=== PATIENT | male | born 1970 | race Caucasian/White ===

== ENCOUNTER 2021-01-15 16:15 | Emergency (ER) | payer MEDICAID, OTHER ==
[~2021-01-15] VITALS: Ht 167.6 cm; Wt 75.0 kg
[~2021-01-15 16:15] MED LIST: BENZ2AMP4 IJ; CA C1TAB36 PO; CARB200T PO; LAMO150T3 PO; MEDR5TAB PO; RISP3TAB23 PO; SIMV20TA18 PO
--- NOTE | 2021-01-15 16:31 | ED.ADGEN ---
Past Medical History Past Medical History: Seizure, Other Additional Past Medical Histor: Mental retardation, petit-mal seizures Past Surgical History: No Surgical History Smoking Status: Never Smoker Alcohol Use: None Drug Use: None General Adult EDM: Chief Complaint: WEAKNESS/GENERALIZED HPI: HPI: Patient is a 50 year old male brought in by EMS for altered mental status. Patient is a history of mental disabilities and history is provided by EMS and caregiver. Per EMS report patient was last seen normal and eating dinner about 24 hours ago, his caregiver noticed at 1900 that he was lethargic and not talking. Caregiver at that time assumed that he had had a seizure since he has a history of epilepsy. Has not come around to come back to normal today. No seizure activity noted. Patient had been incontinent of urine now. EMS noted some facial asymmetry on exam. Patient answers occasional questions and states he "feels fine" and follows commands intermittently.. Caregiver also notes that patient is normally very high functioning and is able to dress himself and talkative. He said that around 7 patient stated he was tired and wanted to go to bed. He did not think that was out of the ordinary if the patient had had a seizure he usually is tired and wants to go to bed early. Today and the caregiver went to get him up for breakfast patient was saying he was tired and want to stay in bed. He was given his medications and a few bites of cereal. Has not gotten out of bed or ambulate today. Caregiver checked his temperature which was 100 but slowly trended down without any antipyretics. Caregiver states that patient was covered and a heavy blanket at the initial temperature. He is normally continent of urine, but occasionally has incontinence when he is having a seizure. Patient never went to penitentiary has been vaccinated against COVID-19 Review of Systems: Review of Systems: All other systems within normal limits except for as noted in the HPI Current Medications: Current Medications Medications (Trade) Dose Ordered Sig/Sunita Start Time Stop Time Status Last Admin Dose Admin Cefoxitin Sodium (Mefoxin) 1 gm 1X ONCE 01/15/21 18:00 01/15/21 18:01 DC Info (CONTRAST GIVEN -- Rx MONITORING) 1 each PRN DAILY PRN 01/15/21 18:00 01/17/21 17:59 Iohexol (Omnipaque 300 Mg/ml) 75 ml 1X ONCE 01/15/21 17:45 01/15/21 17:49 DC Allergies: Allergies: Allergies Coded Allergies Type Severity Reaction Last Updated Verified No Known Drug Allergies 11/20/13 No Physical Exam: PE: Constitutional: Well developed, well nourished, no acute distress, non-toxic appearance. [] HENT: Normocephalic, atraumatic, bilateral external ears normal, nose normal. [] Eyes: PERRLA, conjunctiva normal, no discharge. [] Neck: No rigidity, supple, no stridor. [] Cardiovascular: Regular rate and rhythm, brisk cap refill [] Lungs & Thorax: Non labored symmetric respirations, no tachypnea or respiratory distress [] Abdomen: Soft, nondistended. Skin: Warm, dry, no erythema, no rash. [] Back: Unremarkable, nondistended, no guarding to palpation, large right-sided inguinal hernia into right testicle Extremities: No deformities, range of motion grossly intact, no lower extremity edema [] Neurologic: Alert, oriented x1, intermittently following commands, left side of mouth drooping.] Psychologic: Unable to assess] Current Patient Data: Labs: Laboratory Tests Test 01/15/21 17:13 White Blood Count 32.7 x10^3/uL (4.0-11.0) H Red Blood Count 3.81 x10^6/uL (4.30-5.70) L Hemoglobin 12.2 g/dL (13.0-17.5) L Hematocrit 35.8 % (39.0-53.0) L Mean Corpuscular Volume 94 fL (79-100) Mean Corpuscular Hemoglobin 32 pg (25-35) Mean Corpuscular Hemoglobin Concent 34 g/dL (31-37) Red Cell Distribution Width 13.5 % (11.5-14.5) Platelet Count 215 x10^3/uL (140-400) Neutrophils (%) (Auto) 91 % (31-73) H Lymphocytes (%) (Auto) 2 % (24-48) L Monocytes (%) (Auto) 7 % (0-9) Eosinophils (%) (Auto) 0 % (0-3) Basophils (%) (Auto) 0 % (0-3) Neutrophils # (Auto) 29.8 x10^3/uL (1.8-7.7) H Lymphocytes # (Auto) 0.6 x10^3/uL (1.0-4.8) L Monocytes # (Auto) 2.3 x10^3/uL (0.0-1.1) H Eosinophils # (Auto) 0.0 x10^3/uL (0.0-0.7) Basophils # (Auto) 0.1 x10^3/uL (0.0-0.2) Segmented Neutrophils % 82 % (35-66) H Band Neutrophils % 10 % (0-9) H Lymphocytes % 1 % (24-48) L Monocytes % 7 % (0-10) Platelet Estimate Adequate (ADEQUATE) Sodium Level 139 mmol/L (136-145) Potassium Level 4.3 mmol/L (3.5-5.1) Chloride Level 101 mmol/L (98-107) Carbon Dioxide Level 30 mmol/L (21-32) Anion Gap 8 (6-14) Blood Urea Nitrogen 17 mg/dL (8-26) Creatinine 0.7 mg/dL (0.7-1.3) Estimated GFR (Cockcroft-Gault) 118.9 BUN/Creatinine Ratio 24 (6-20) H Glucose Level 145 mg/dL (70-99) H Lactic Acid Level 1.2 mmol/L (0.4-2.0) Calcium Level 8.6 mg/dL (8.5-10.1) Phosphorus Level 2.8 mg/dL (2.6-4.7) Magnesium Level 2.0 mg/dL (1.8-2.4) Total Bilirubin 0.5 mg/dL (0.2-1.0) Aspartate Amino Transferase (AST) 33 U/L (15-37) Alanine Aminotransferase (ALT) 41 U/L (16-63) Alkaline Phosphatase 105 U/L (46-116) Creatine Kinase 34 U/L (39-308) L Myoglobin 30 ng/mL (16-96) Troponin I Quantitative < 0.017 ng/mL (0.000-0.055) WP-Gpx-U-Type Natriuretic Peptide 1434 pg/mL (0-124) H Total Protein 6.5 g/dL (6.4-8.2) Albumin 3.5 g/dL (3.4-5.0) Albumin/Globulin Ratio 1.2 (1.0-1.7) Laboratory Tests 01/15/21 17:13 Laboratory Tests 01/15/21 17:13 Vital Signs: Vital Signs Date Time Temp Pulse Resp B/P (MAP) Pulse Ox O2 Delivery O2 Flow Rate FiO2 01/15/21 16:18 98.3 71 16 128/60 (82) 98 Room Air 98.3 EKG: EKG: Sinus rhythm, heart rate 60 bpm, normal axis, no ST elevation or depression [] Heart Score: C/O Chest Pain: No HEART Score for Chest Pain: HEART Score for Chest Pain Response (Comments) Value History Slighlty/Non-Suspicious 0 ECG Normal 0 Age >45 - < 65 1 Risk Factors No Risk Factors 0 Troponin < Normal Limit 0 Total 1 Risk Factors: Risk Factors: DM, Current or recent (<one month) smoker, HTN, HLP, family history of CAD, obesity. Risk Scores: Score 0 - 3: 2.5% MACE over next 6 weeks - Discharge Home Score 4 - 6: 20.3% MACE over next 6 weeks - Admit for Clinical Observation Score 7 - 10: 72.7% MACE over next 6 weeks - Early Invasive Strategies Radiology/Procedures: Radiology/Procedures: [facility] [address] [place] [address] IMAGING REPORT Signed PATIENT: TEE VAUGHAN ACCOUNT: [id number] : 1970 LOCATION: ER AGE: 50 SEX: M EXAM STATUS: PRE ER ORD. PHYSICIAN: ARACELIS VELASQUEZ MD REASON: ams, left face droop PROCEDURE: CT HEAD WO CONTRAST CT HEAD/BRAIN WO History: Reason: ams, left face droop / Spl. Instructions: / History: Comparison: None. Technique: Noncontrast CT imaging was performed of the head. Exposure: One or more of the following individualized dose reduction techniques were utilized for this examination: 1. Automated exposure control 2. Adjustment of the mA and/or kV according to patient size 3. Use of iterative reconstruction technique. Findings: No intracranial hemorrhage. No mass effect. No hydrocephalus. Extra-axial spaces are unremarkable. Imaged orbits are unremarkable. Imaged paranasal sinuses and mastoid air cells are clear. No acute calvarial fracture. Impression: 1. No acute intracranial abnormality. Electronically signed by: Leonel Swanson DO (01/15/2021 5:12 PM) [facility] DICTATED and SIGNED BY: LEONEL SWANSON DO DATE: 01/15/21 [id number] [][facility] [address] [place] [address] IMAGING REPORT Signed PATIENT: TEE VAUGHAN ACCOUNT: [id number] : 1970 LOCATION: ER AGE: 50 SEX: M EXAM STATUS: PRE ER ORD. PHYSICIAN: ARACELIS VELASQUEZ MD REASON: ams PROCEDURE: CHEST AP ONLY XR CHEST 1V History: Reason: ams / Spl. Instructions: / History: Comparison: None. Findings: Mild interstitial thickening with ill-defined mid and bibasilar opacities. No pleural effusion. No pneumothorax. Normal heart size. Chronic ununited left distal clavicular fracture. Impression: 1. Mild interstitial thickening with ill-defined opacities, may represent pulmonary edema or infection. Electronically signed by: Leonel Swanson DO (01/15/2021 5:08 PM) [facility] DICTATED and SIGNED BY: LEONEL SWANSON DO DATE: 01/15/[id number] 0 Course & Med Decision Making: Course & Med Decision Making Pertinent Labs and Imaging studies reviewed. (See chart for details) Transitioned at shift change, pending CT a of the head and neck and CT of the abdomen to evaluate for inguinal mass. [] Dragon Disclaimer: Dragon Disclaimer: This electronic medical record was generated, in whole or in part, using a voice recognition dictation system. Departure Departure Referrals: JUAN VELASQUEZ MD (PCP) ARACELIS VELASQUEZ MD Jan 15, 2021 16:31
--- NOTE | 2021-01-15 17:06 | EKG ---
[facility] [address] [place] [address] Test Date: 2021-01-15 Test Time: 16:46:00 Pat Name: TEE VAUGHAN Department: Room: Gender: Staff Consultant: : 1970 Requested By: ARACELIS VELASQUEZ Order Number: [id number] Reading MD: Measurements Intervals [place] Rate: 69 P: 26 DE: 174 QRS: 49 QRSD: 96 T: 68 QT: 422 QTc: 454 Interpretive Statements SINUS RHYTHM NORMAL ECG RI6.02 No previous ECG available for comparison
--- NOTE | 2021-01-15 17:10 | RAD ---
XR CHEST 1V History: Reason: ams / Spl. Instructions: / History: Comparison: None. Findings: Mild interstitial thickening with ill-defined mid and bibasilar opacities. No pleural effusion. No pn eumothorax. Normal heart size. Chronic ununited left distal clavicular fracture. Impression: 1. Mild interstitial thickening with ill-defined opacities, may represent pulmonary edema or infecti on. Electronically signed by: Leonel Swanson DO (01/15/2021 5:08 PM) [facility]
--- NOTE | 2021-01-15 17:14 | RAD ---
CT HEAD/BRAIN WO History: Reason: ams, left face droop / Spl. Instructions: / History: Comparison: None. Technique: Noncontrast CT imaging was performed of the head. Exposure: One or more of the following individualized dose reduction techniques were utilized for thi s examination: 1. Automated exposure control 2. Adjustment of the mA and/or kV according to patient size 3. Use of iterative reconstruction technique. Findings: No intracranial hemorrhage. No mass effect. No hydrocephalus. Extra-axial spaces are unremarkable. Imaged orbits are unremarkable. Imaged paranasal sinuses and mastoid air cells are clear. No acute ca lvarial fracture. Impression: 1. No acute intracranial abnormality. Electronically signed by: Leonel Swanson DO (01/15/2021 5:12 PM) [facility]
[2021-01-15 17:24] LABS: BASO # 0.1 x10^3/uL (0.0-0.2); BASO % 0 % (0-3); EOS % 0 % (0-3); HEMATOCRIT 35.8 % (39.0-53.0); HEMOGLOBIN 12.2 g/dL (13.0-17.5); LYMPH # 0.6 x10^3/uL (1.0-4.8); LYMPH % 2 % (24-48); MEAN CORPUSCULAR HEMOGLOBIN 32 pg (25-35); MEAN CORPUSCULAR HGB CONC 34 g/dL (31-37); MEAN CORPUSCULAR VOLUME 94 fL (79-100); MONO # 2.3 x10^3/uL (0.0-1.1); MONO % 7 % (0-9); NEUT # 29.8 x10^3/uL (1.8-7.7); NEUT % 91 % (31-73); PLATELET COUNT 215 x10^3/uL (140-400); RED BLOOD COUNT 3.81 x10^6/uL (4.30-5.70); RED CELL DISTRIBUTION WIDTH 13.5 % (11.5-14.5); WHITE BLOOD COUNT 32.7 x10^3/uL (4.0-11.0)
[2021-01-15 17:35] LABS: CALCIUM 8.6 mg/dL (8.5-10.1); CREATININE 0.7 mg/dL (0.7-1.3); GFR 118.9; POTASSIUM 4.3 mmol/L (3.5-5.1)
[2021-01-15 17:39] LABS: % BANDS 10 % (0-9); % LYMPHS 1 % (24-48); % MONOS 7 % (0-10); % SEGS 82 % (35-66); PLT ESTIMATE ADEQUATE (ADEQUATE)
[2021-01-15] MEDS ORDERED: IOHEXOL 300 MG/ML 100ML VIAL. IV ONE (17:45)
[2021-01-15 17:50] LABS: ALBUMIN 3.5 g/dL (3.4-5.0); ALBUMIN/GLOBULIN RATIO 1.2 (1.0-1.7); PHOSPHORUS 2.8 mg/dL (2.6-4.7); TOTAL BILIRUBIN 0.5 mg/dL (0.2-1.0); TOTAL PROTEIN 6.5 g/dL (6.4-8.2)
[2021-01-15] MEDS ORDERED: CONTRAST GIVEN. MC PRN (18:00)
[2021-01-15] MEDS ORDERED: cefOXitin SODIUM IV Push 1 GM VIAL. IVP ONE (18:00)
--- NOTE | 2021-01-15 18:14 | PDOC2 ---
NEUROLOGY CONSULT Date of Service DOS: DATE: 01/15/21 TIME: 17:56 Reason for Consult Reason for Consult: Possible stroke Referring Physician Referring Physician: Hospitalist Source Source: Caregiver (VANITA Lieberman), Chart review, Patient History of Present Illness History of Present Illness The patient is a 50-year-old right-handed male last known normal last night. 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 Today he was found to be weak, not moving, decreased level of consciousness. At baseline, he eats and dresses for himself. I reviewed his [facility] chart with permission from his power of instrument lens generator. He last saw Dr. Kay, epilepsy specialist at the [facility], in July. Patient is on carbamazepine and lamotrigine. He has a seizure history at least once daily of complex partial seizures unchanged from baseline. He has seizures since childhood. He had an EEG in 05/05/2008 showing left occipital epileptic discharge and bilateral hemispheric dysfunction. He has chronic intellectual disability and as stated, lives in a chcf. There is no history of stroke or head injury. Past Medical History Cardiovascular: HTN, Hyperlipidemia CENTRAL NERVOUS SYSTEM: Seizure (Epilepsy), Other (Intellectual disability) Endocrine: Osteoporosis Past Surgical History Past Surgical History: No pertinent history Family History Family History: No pertinent hx (Unknown) Social History Social History Single, disabled, lives in a chcf, no alcohol, tobacco, street drug Current Medications Current Medications Current Medications Iohexol (Omnipaque 300 Mg/ml) 75 ml 1X ONCE IV ; Start 01/15/21 at 17:45; Stop 01/15/21 at 17:49; Status DC Info (CONTRAST GIVEN -- Rx MONITORING) 1 each PRN DAILY PRN MC SEE COMMENTS; Start 01/15/21 at 18:00; Stop 01/17/21 at 17:59 Cefoxitin Sodium (Mefoxin) 1 gm 1X IVP ; Start 01/15/21 at 18:00; Status UNV Active Scripts Active Reported Calcium + Vit D & K Chew Tab (Ca Carbonate/Vitamin D3/Vit K) 1 Each Tab.chew 1 Each PO DAILY08 Risperdal (Risperidone) 3 Mg Tablet 3 Mg PO HS Tegretol (Carbamazepine) 200 Mg Tablet 200 Mg PO BID Cogentin (Benztropine Mesylate) 2 Mg/2 Ml Ampul 1 Mg IJ BID Lamictal (Lamotrigine) 150 Mg Tablet 150 Mg PO BID Simvastatin 20 Mg Tablet 20 Mg PO DAILY Provera (Medroxyprogesterone Acetate) 5 Mg Tablet 5 Mg PO DAILY From [facility] chart: benztropine (COGENTIN) 1 mg tablet, Take 1 mg by mouth twice daily., Disp: , Rfl: carBAMazepine XR (TEGRETOL XR) 100 mg tablet, TAKE 1 TABLET BY MOUTH EVERY MORNING AND TAKE 2 TABLETS (200MG) EVERY EVENING (EQ TEGRETOL) *TOTAL DOSE 500MG/AM AND 600MG/PM* FOR SEIZURES, Disp: 93 tablet, Rfl: 6 carBAMazepine XR (TEGRETOL XR) 400 mg tablet, TAKE 1 TABLET BY MOUTH TWICE A DAY FOR SEIZURES (EQ TEGRETOL), Disp: 62 tablet, Rfl: 6 lamoTRIgine (LAMICTAL) 150 mg tablet, TAKE 2 TABLETS (=300MG) BY MOUTH TWICE A DAY FOR SEIZURES (EQ: LAMICTAL), Disp: 124 tablet, Rfl: 3 medroxyprogesterone (PROVERA) 5 mg tablet, Take 5 mg by mouth daily., Disp: , Rfl: risperiDONE (RISPERDAL) 3 mg tablet, Take 3 mg by mouth at bedtime daily., Disp: , Rfl: simvastatin (ZOCOR) 20 mg tablet, Take 20 mg by mouth at bedtime daily., Disp: , Rfl: Allergies Allergies: Coded Allergies: No Known Drug Allergies (Unverified , 11/20/13) ROS Review of System Negative for fever, chills, weight loss, shortness of breath, chest pain, indigestion, hematochezia, melena, and dysuria. Full 14-point review of systems is negative. Physical Exam Physical Examination General: Well-developed, well-nourished white male in no acute distress HEENT: Normocephalic andatraumatic. Temporal arteriespulsatile and nontender. Neck: Supple without bruit, no meningismus Musculoskeletal: Stability:see neurologic. Gait exam:see neurologic. Tone:see neurologic.Strength:see neurologic. Neurological: Mental Status:Alert, can tell me his name, does not know date or location, intermittently follows simple commands. Cranial Nerves:Pupils equal and reactive to light, extraocular movements areintact, visual negrete are full to confrontation. Facial sensation is normal. There is a left central facial weakness. Vestibulo-ocular reflex is intact. Palate elevates and tongue protrudes in midline. All other cranial related problems are negative except as mentioned before.Reflexes:2+ and symmetric with extensor plantar response on the left, flexor on the right. Motor:4/5, weaker on the left. Coordination and gait:not cooperative. Mild coarse tremor of the right arm. Sensory:Not cooperative, does respond to pinprick in all 4 extremities. Vitals VITALS Vital Signs Date Time Temp Pulse Resp B/P (MAP) Pulse Ox O2 Delivery O2 Flow Rate FiO2 01/15/21 16:18 98.3 71 16 128/60 (82) 98 Room Air 98.3 Labs Labs Laboratory Tests Test 01/15/21 17:13 White Blood Count 32.7 x10^3/uL (4.0-11.0) Red Blood Count 3.81 x10^6/uL (4.30-5.70) Hemoglobin 12.2 g/dL (13.0-17.5) Hematocrit 35.8 % (39.0-53.0) Mean Corpuscular Volume 94 fL (79-100) Mean Corpuscular Hemoglobin 32 pg (25-35) Mean Corpuscular Hemoglobin Concent 34 g/dL (31-37) Red Cell Distribution Width 13.5 % (11.5-14.5) Platelet Count 215 x10^3/uL (140-400) Neutrophils (%) (Auto) 91 % (31-73) Lymphocytes (%) (Auto) 2 % (24-48) Monocytes (%) (Auto) 7 % (0-9) Eosinophils (%) (Auto) 0 % (0-3) Basophils (%) (Auto) 0 % (0-3) Neutrophils # (Auto) 29.8 x10^3/uL (1.8-7.7) Lymphocytes # (Auto) 0.6 x10^3/uL (1.0-4.8) Monocytes # (Auto) 2.3 x10^3/uL (0.0-1.1) Eosinophils # (Auto) 0.0 x10^3/uL (0.0-0.7) Basophils # (Auto) 0.1 x10^3/uL (0.0-0.2) Segmented Neutrophils % 82 % (35-66) Band Neutrophils % 10 % (0-9) Lymphocytes % 1 % (24-48) Monocytes % 7 % (0-10) Platelet Estimate Adequate (ADEQUATE) Sodium Level 139 mmol/L (136-145) Potassium Level 4.3 mmol/L (3.5-5.1) Chloride Level 101 mmol/L (98-107) Carbon Dioxide Level 30 mmol/L (21-32) Anion Gap 8 (6-14) Blood Urea Nitrogen 17 mg/dL (8-26) Creatinine 0.7 mg/dL (0.7-1.3) Estimated GFR (Cockcroft-Gault) 118.9 BUN/Creatinine Ratio 24 (6-20) Glucose Level 145 mg/dL (70-99) Lactic Acid Level 1.2 mmol/L (0.4-2.0) Calcium Level 8.6 mg/dL (8.5-10.1) Phosphorus Level 2.8 mg/dL (2.6-4.7) Magnesium Level 2.0 mg/dL (1.8-2.4) Total Bilirubin 0.5 mg/dL (0.2-1.0) Aspartate Amino Transf (AST/SGOT) 33 U/L (15-37) Alanine Aminotransferase (ALT/SGPT) 41 U/L (16-63) Alkaline Phosphatase 105 U/L (46-116) Creatine Kinase 34 U/L (39-308) Myoglobin 30 ng/mL (16-96) Troponin I Quantitative < 0.017 ng/mL (0.000-0.055) RJ-Pzl-H-Type Natriuretic Peptide 1434 pg/mL (0-124) Total Protein 6.5 g/dL (6.4-8.2) Albumin 3.5 g/dL (3.4-5.0) Albumin/Globulin Ratio 1.2 (1.0-1.7) Laboratory Tests Test 01/15/21 17:13 White Blood Count 32.7 x10^3/uL (4.0-11.0) Red Blood Count 3.81 x10^6/uL (4.30-5.70) Hemoglobin 12.2 g/dL (13.0-17.5) Hematocrit 35.8 % (39.0-53.0) Mean Corpuscular Volume 94 fL (79-100) Mean Corpuscular Hemoglobin 32 pg (25-35) Mean Corpuscular Hemoglobin Concent 34 g/dL (31-37) Red Cell Distribution Width 13.5 % (11.5-14.5) Platelet Count 215 x10^3/uL (140-400) Neutrophils (%) (Auto) 91 % (31-73) Lymphocytes (%) (Auto) 2 % (24-48) Monocytes (%) (Auto) 7 % (0-9) Eosinophils (%) (Auto) 0 % (0-3) Basophils (%) (Auto) 0 % (0-3) Neutrophils # (Auto) 29.8 x10^3/uL (1.8-7.7) Lymphocytes # (Auto) 0.6 x10^3/uL (1.0-4.8) Monocytes # (Auto) 2.3 x10^3/uL (0.0-1.1) Eosinophils # (Auto) 0.0 x10^3/uL (0.0-0.7) Basophils # (Auto) 0.1 x10^3/uL (0.0-0.2) Segmented Neutrophils % 82 % (35-66) Band Neutrophils % 10 % (0-9) Lymphocytes % 1 % (24-48) Monocytes % 7 % (0-10) Platelet Estimate Adequate (ADEQUATE) Sodium Level 139 mmol/L (136-145) Potassium Level 4.3 mmol/L (3.5-5.1) Chloride Level 101 mmol/L (98-107) Carbon Dioxide Level 30 mmol/L (21-32) Anion Gap 8 (6-14) Blood Urea Nitrogen 17 mg/dL (8-26) Creatinine 0.7 mg/dL (0.7-1.3) Estimated GFR (Cockcroft-Gault) 118.9 BUN/Creatinine Ratio 24 (6-20) Glucose Level 145 mg/dL (70-99) Lactic Acid Level 1.2 mmol/L (0.4-2.0) Calcium Level 8.6 mg/dL (8.5-10.1) Phosphorus Level 2.8 mg/dL (2.6-4.7) Magnesium Level 2.0 mg/dL (1.8-2.4) Total Bilirubin 0.5 mg/dL (0.2-1.0) Aspartate Amino Transf (AST/SGOT) 33 U/L (15-37) Alanine Aminotransferase (ALT/SGPT) 41 U/L (16-63) Alkaline Phosphatase 105 U/L (46-116) Creatine Kinase 34 U/L (39-308) Myoglobin 30 ng/mL (16-96) Troponin I Quantitative < 0.017 ng/mL (0.000-0.055) LE-Vvv-R-Type Natriuretic Peptide 1434 pg/mL (0-124) Total Protein 6.5 g/dL (6.4-8.2) Albumin 3.5 g/dL (3.4-5.0) Albumin/Globulin Ratio 1.2 (1.0-1.7) Images Images CT HEAD/BRAIN WO History: Reason: ams, left face droop / Spl. Instructions: / History: Comparison: None. Technique: Noncontrast CT imaging was performed of the head. Exposure: One or more of the following individualized dose reduction techniques were utilized for this examination: 1. Automated exposure control 2. Adjustment of the mA and/or kV according to patient size 3. Use of iterative reconstruction technique. Findings: No intracranial hemorrhage. No mass effect. No hydrocephalus. Extra-axial spaces are unremarkable. Imaged orbits are unremarkable. Imaged paranasal sinuses and mastoid air cells a re clear. No acute calvarial fracture. Impression: 1. No acute intracranial abnormality. Assessment/Plan Assessment/Plan Impression: Acute right hemispheric stroke, also keep in mind the possibility of Edison's paralysis from a seizure. Epilepsy Intellectual disability Drug-induced Parkinson's Recommendations: CT angiogram tonight Aspirin Statin I wrote for his oral anticonvulsants but will give him intravenous levetiracetam until we clear his speech MRI of the brain tomorrow Echocardiogram on 01/18 Rehabilitation modalities Also see stroke orders Fully discussed with patient's power of instrument lens generator Thank you for letting me help with the patient's care. MILLA CHURCHILL MD Jan 15, 2021 18:14
[2021-01-15] MEDS ORDERED: ASPIRIN RECTAL 300 MG SUPP. PR PRN (18:15)
[2021-01-15] MEDS ORDERED: ACETAMINOPHEN 325 MG TABLET. PO PRN (18:15)
[2021-01-15] MEDS ORDERED: IV NORMAL SALINE 1000ML BAG 1,000 ML IV ONE (18:15)
--- NOTE | 2021-01-15 18:55 | RAD ---
EXAMINATION: CTA HEAD AND NECK W/WO CONTRAST CLINICAL HISTORY: Left-sided facial droop TECHNIQUE: Spiral high resolution axial images were obtained through the head, neck and superior medi astinum following bolus administration of intravenous contrast for CT angiography. 3D maximum intensi ty projection images also performed. CT Dose Reduction Employed: One or more of the following individualized dose reduction techniques wer e utilized for this examination: 1. Automated exposure control 2. Adjustment of the mA and/or kV ac cording to patient size 3. Use of iterative reconstruction technique. COMPARISON: None FINDINGS: BRAIN: No evidence of acute ischemic stroke or intracranial hemorrhage. NECK: Soft Tissues: Unremarkable. Spine: Normal anatomic alignment. Mild multilevel degenerative changes. Lung Apices: No acute abnormality. CT ARTERIOGRAM: Extracranial Circulation: Aortic Arch: Normal branching pattern from the aortic arch. No significant stenosis in the proximal b rachiocephalic vessels. Carotid Stenosis: Right Common: No significant stenosis. Right Internal Carotid Plaque: No significant plaque formation. Right Internal Carotid Stenosis (% by NASCET Criteria): No significant stenosis. Left Common: No significant stenosis. Left Internal Carotid Plaque: No significant plaque formation. Left Internal Carotid Stenosis (% by NASCET Criteria): No significant stenosis. Cervical Vertebral Arteries: Patency: Bilateral Dominance: Right Intracranial Circulation: Anterior Circulation: No evidence of large vessel occlusion. Vertebrobasilar Circulation: No evidence of large vessel occlusion. IMPRESSION: No evidence of large vessel occlusion or significant carotid arterial stenosis. Electronically signed by: Jean Carlos Acuna DO (01/15/2021 6:53 PM) [facility]
[2021-01-15 19:08] LABS: BILIRUBIN,URINE SMALL (NEG); CLARITY,URINE CLEAR; COLOR,URINE AMBER; NITRITE,URINE NEGATIVE (NEG); PROTEIN,URINE 100 mg/dL (NEG-TRACE)
[2021-01-15 19:17] LABS: BACTERIA,URINE 0 /HPF (0-FEW); WBC,URINE >40 /HPF (0-4)
--- NOTE | 2021-01-15 19:18 | RAD ---
EXAMINATION: CT ABDOMEN+PELVIS W CLINICAL HISTORY: Inguinal hernia TECHNIQUE: CT of the abdomen and pelvis was performed using standard technique, scanning from just ab ove the dome of the diaphragm to the symphysis pubis following administration of intravenous contrast . CT Dose Reduction Employed: One or more of the following individualized dose reduction techniques wer e utilized for this examination: 1. Automated exposure control 2. Adjustment of the mA and/or kV ac cording to patient size 3. Use of iterative reconstruction technique. COMPARISON: None FINDINGS: Cardiomegaly. Dependent bibasilar subsegmental atelectasis. Moderately distended gallbladder. Liver, pancreas, spleen, and adrenal glands unremarkable. Left kidney not visualized. Right kidney unremarkable. Mildly filled urinary bladder. Mild fluid in the rectovesical recess, likely reactive. Asymmetrically enlarged heterogeneous right testicle with [id number] hydrocele associated scrotal skin thicke sami/subcutaneous edema. No inguinal hernia. No dilated bowel. Prominent stool throughout the colon. Appendix not definitively visualized. No abdominal aortic or iliac artery aneurysm. Suspected bone infarct in the right proximal femur. Joint space narrowing in the left hip with promin ent subchondral cysts in the femoral head, compatible with at least moderate degenerative changes. IMPRESSION: Asymmetric enlarged heterogeneous right testicle with mild/moderate hydrocele and overlying scrotal s kin thickening/subcutaneous edema. No inguinal hernia. Recommend clinical correlation and scrotal ult rasound for further evaluation. Suspected bone infarct in the proximal right femur. Electronically signed by: Jean Carlos Acuna DO (01/15/2021 7:16 PM) [facility]
[2021-01-15] MEDS ORDERED: levETIRAcetam 500 MG in IV DEXTROSE 5% 100ML 100 ML IV SCH (21:00)
[2021-01-15] MEDS ORDERED: lamoTRIgine 100 MG TABLET. PO SCH (21:00)
[2021-01-15] MEDS ORDERED: ATORVASTATIN CALCIUM 40 MG TABLET. PO SCH (21:00)
--- NOTE | 2021-01-15 22:28 | RAD ---
Ultrasound the scrotum. CLINICAL HISTORY: Reason: RT scrotal swelling; Abnormal CT scan / Spl. Instructions: / History: COMPARISON: CT abdomen pelvis from today TECHNIQUE: Ultrasound images of the scrotum was performed with pierre-scale and color doppler. FINDINGS: The right testis measures 4.5 x 3.1 x 3 cm. The left testis measures 3.7 x 2.6 x 3.1 cm There is a small hypoechoic focus measuring 5 x 8 x 4 mm near the hilum of the testicle. This is nons pecific follow-up recommended. There is a right hydrocele which is complex with septations. There is thickening the wall the scrotum. Infection can have this pattern. Right epididymis is generous in siz e. There is increased flow to the right testicle and epididymis consistent with an epididymal orchiti s on the right side. There is a small left hydrocele. There is no left testicular mass. Left epididymis is within normal l imits in size. There is flow in the left testicle which is normal. IMPRESSION: 1. Enlarged epididymis with increased flow suggests epididymitis. 2. Complex hydrocele possible infection or abscess. 3. Small hypoechoic focus near the hilum of the right testicle nonspecific follow-up recommended. Electronically signed by: Dave Ren MD (01/15/2021 10:26 PM) [facility]
[2021-01-16 00:34] VITALS: BP 102/52
[2021-01-16] MEDS ORDERED: ASPIRIN ENTERIC COATED 325 MG TABLET.DR. PO SCH (08:00)
== END 2021-01-16 00:42 | disposition short-term general hospital (02) ==
LOC: ER 16:15
DX: R41.82 Altered mental status, unspecified (principal)
CPT/HCPCS: 36415; 70450; 70496; 70498; 71045; 74177; 76870; 80053; 80175; 81001; 82550; 83605; 83735; 83874; 83880; 84100; 84484; 85007; 85025; 87040; 87086; 87205; 93005; 96361; 96365; 96375; 99285; J0694; J1953; J7030; J7060; Q9967